=== PATIENT | female | born 1975 | race African-American/Black ===

== ENCOUNTER 2016-12-27 14:56 | Emergency (ER) | payer MEDICAID ==
[~2016-12-27] VITALS: Ht 175.3 cm; Wt 79.4 kg
[2016-12-27] MEDS ORDERED: METOPROLOL TARTRATE 50 MG TAB PO ONE (15:15)
[2016-12-27 15:38] LABS: Basophils # (auto) 0 uL; Basophils % (auto) 0.7 % (0.0-2.0); DEFINITIVE VIEW TRANSMISSION; Eosinophils # (auto) 1.1 uL; Eosinophils % (auto) 18.1 % (0.0-7.0); Hematocrit 38.5 % (36.0-46.0); Hemoglobin 12.1 g/dL (12.2-16.2); Lymphocytes # (auto) 1.3 uL; Lymphocytes % (auto) 22.4 % (10.0-50.0); Mean Corpuscular Hemoglobin 28.7 pg (28.0-32.0); Mean Corpuscular Hgb Conc. 31.5 g/dL (32.0-36.0); Mean Corpuscular Volume 90.8 fL (80.0-100.0); Mean Platelet Volume 8.8 fL (7.4-10.4); Monocytes # (auto) 0.5 uL; Monocytes % (auto) 7.7 % (0.0-12.0); Neutrophils # (auto) 3.1 uL; Neutrophils % (auto) 51.1 % (37.0-80.0); Platelet Count (auto) 350 10^3/uL (140-450); Red Cell Distribution Width 14.6 % (11.6-16.0)
[2016-12-27 16:04] LABS: Albumin 3.6 g/dL (3.4-5.0); Bilirubin, Total 0.3 mg/dL (0.2-1.0); Calcium 8.6 mg/dL (8.5-10.1); Total Protein 7.8 g/dL (6.4-8.2)
[2016-12-27] MEDS ORDERED: methylPREDNISolone SOD SUCC 125 MG/2 ML VL IV ONE (22:15)
[2016-12-27] MEDS ORDERED: SODIUM CHLORIDE 0.9% 1,000 ML IV ONE (22:15)
[2016-12-27] MEDS ORDERED: cloNIDine HCL 0.1 MG TAB PO ONE (22:15)
[2016-12-27] MEDS ORDERED: IPRATROPIUM BROM 0.5 MG/2.5ML INH SOL NEB ONE (22:15)
[2016-12-27] MEDS ORDERED: ALBUTEROL SULF 2.5 MG/0.5ML(0.5%) NEB SOLN NEB ONE (22:15)
[2016-12-28 00:10] VITALS: BP 159/105
== END 2016-12-28 00:12 | disposition home or self-care (01) ==
LOC: ER 14:59
DX: J45.901 Unspecified asthma with (acute) exacerbation (principal); I10 Essential (primary) hypertension
CPT/HCPCS: 36415; 71020; 80053; 84484; 85025; 93005; 94761; 96361; 96374; 99285; J2930; J7030